=== PATIENT | female | born 2000 | race Caucasian/White ===

== ENCOUNTER 2024-03-27 10:17 | Outpatient (CLI) | payer OTHER, SELFPAY ==
--- NOTE | 2024-03-27 10:22 | US_ITS ---
PROCEDURE: US TRANSVAGINAL CLINICAL INDICATION: AUB COMPARISON: No exams were available for comparison FINDINGS: Transvaginal sonographic images of the pelvis were obtained. UTERUS: 7.8cm x 5.4cmx 4.0cm anteverted with a combined endometrial thickness of 7.1mm. LEFT OVARY: 3.0cmx2.4cmx2.5cm with a volume of 9.4ml. There is a follicle in left ovary measuring 2.0 cm x 1.4 cm x 1.9 cm. There are several small peripheral follicles. RIGHT OVARY: 5.8 cmx 5.1cmx4.7 cm with a volume of 72.4ml. The entire right ovary is a multi-cystic mass. An area that has a lacy appearance consistent with a hemorrhagic cyst but mostly the ovary is multi-cystic. Both ovaries are seen and appear normal. Doppler flow to both ovaries are seen. There is trace fluid in the cul-de-sac. IMPRESSION: 1. Anteverted uterus normal in shape and size. The endometrium is normal and measures 7.1 mm. 2. The left ovary appears normal in contains a 2 cm follicle. 3. The right ovary is enlarged and consists of a multi-cystic mass. There is a lacy appearance 2 part of the ovary that looks like a hemorrhagic cyst. 4. This could be a resolving hemorrhagic cyst. Would suggest repeat ultrasound in 6-8 weeks. 5. There is trace fluid in the cul-de-sac. Dictated by: Sudarshan Diaz MD 03/27/2024 15:26 Sudarshan Diaz MD in [facility] 03/27/2024 15:26
== END 2024-03-27 23:59 | disposition home or self-care (01) ==
LOC: RAD 10:18
PROVIDERS: PCP Family Medicine; Visit Provider Obstetrics & Gynecology
DX: N93.9 Abnormal uterine and vaginal bleeding, unspecified (principal)
CPT/HCPCS: 76830

== ENCOUNTER 2024-05-08 13:42 | Outpatient (CLI) | payer OTHER, SELFPAY ==
--- NOTE | 2024-05-08 13:46 | US_ITS ---
PROCEDURE: US TRANSVAGINAL CLINICAL INDICATION: Repeat US for resolving hemorrhagic cyst, [facility]QP COMPARISON: US US TRANSVAGINAL from 03/27/2024 FINDINGS: Transvaginal sonographic images of the pelvis were obtained. UTERUS: 7.8cm x 4.7 cmx 3.8 cm anteverted with a combined endometrial thickness of 10.1mm. The endometrium appears trilaminar. LEFT OVARY: 3.8 cmx3.3cmx2.3cm with a volume of 15.2ml. Within the left ovary there is a follicle that measures 1.9 cm x 2.6 cm x 1.5 cm RIGHT OVARY: 2.6 cmx 3.6 cmx2.5cm with a volume of 12.1ml. The previously described hemorrhagic cyst has now resolved. There are multiple small peripheral follicles. Both ovaries are seen and appear normal. Doppler flow to both ovaries are seen. There is a small amount of fluid in the cul-de-sac. IMPRESSION: 1. Anteverted uterus normal in shape and size. The endometrium is 10.1 mm and trilaminar. 2. Both ovaries are seen and appear normal. 3. The previously described hemorrhagic cyst on the right ovary has now resolved. There are multiple small peripheral follicles. 4. There is a small amount of fluid in the cul-de-sac. Dictated by: Sudarshan Diaz MD 05/09/2024 08:01 Sudarshan Diaz MD in [facility] 05/09/2024 08:01
== END 2024-05-08 23:59 | disposition home or self-care (01) ==
LOC: RAD 13:44
PROVIDERS: Visit Provider Obstetrics & Gynecology
DX: R10.31 Right lower quadrant pain (principal); N93.9 Abnormal uterine and vaginal bleeding, unspecified; N94.6 Dysmenorrhea, unspecified; N83.209 Unspecified ovarian cyst, unspecified side
CPT/HCPCS: 76830